=== PATIENT | male | born 1955 | race Caucasian/White ===

== ENCOUNTER 2023-10-30 12:43 | Inpatient (IN) | payer MEDICARE, OTHER ==
[~2023-10-30] VITALS: Ht 167.6 cm; Wt 53.5 kg
[~2023-10-30 12:43] MED LIST: ASPI-1444 PO; ATOR10TA PO; GLIM2 PO; LOSA-381 PO; TAMS0.4C94 PO
[2023-10-30] MEDS ORDERED: 0.9% SODIUM CHLORIDE 10 ML SYRINGE IVP PRN (13:00)
[2023-10-30] MEDS: VANCOMYCIN 1.25 GM/WATER(PEG) 250 ML IV ONE (13:36)
[2023-10-30 13:37] LABS: BASOPHILS % (AUTO) 0.4 % (0.0-2.0); EOSINOPHILS % (AUTO) 2.7 % (1.0-6.0); HEMATOCRIT 30.9 % (41-53); HEMOGLOBIN 9.6 g/dL (13.5-17.5); LYMPHOCYTES # (AUTO) 1.7 K/uL (1.0-4.8); LYMPHOCYTES % (AUTO) 14.2 % (22.0-44.0); MEAN CORPUSCULAR HEMOGLOBIN 29.5 pg (26.0-34.0); MEAN CORPUSCULAR HGB CONC 31.2 G/dL (31.0-37.0); MEAN CORPUSCULAR VOLUME 95 fL (80-100); MONOCYTES # (AUTO) 0.8 K/uL (0.1-1.0); MONOCYTES % (AUTO) 6.7 % (2.0-9.0); NEUTROPHILS # (AUTO) 9.2 K/uL (1.8-7.7); PLATELET COUNT (AUTO) 324 K/uL (150-450); RED BLOOD CELL COUNT(AUTO) 3.27 MIL/uL (4.50-5.90); RED CELL DISTRIBUTION WIDTH 13.9 % (11.5-14.5); WHITE BLOOD COUNT (AUTO) 12.1 K/uL (4.5-11.0)
[2023-10-30] MEDS: ACETAMINOPHEN 1000 MG/ISO-OSM 100 ML IV ONE (13:37)
[2023-10-30] MEDS: PIPERACILLIN/TAZO 3.375 GM/D5W 50 ML IV ONE (13:38)
[2023-10-30] MEDS: SODIUM CHLORIDE 0.9% 1,000 ML IV ONE (13:38)
[2023-10-30 13:46] LABS: ANION GAP 11 mmol/L (8-16); CALCIUM, TOTAL 8.1 mg/dL (8.8-10.5); CARBON DIOXIDE 27 mmol/L (22-29); CHLORIDE 118 mmol/L (98-107); CREATININE 2.14 mg/dL (0.60-1.30); GLOMERULAR FILTR. RATE CALC 31 mL/min (>60); GLUCOSE,RANDOM 271 mg/dL (70-110); POTASSIUM 3.7 mmol/L (3.5-5.1); SODIUM SERUM 156 mmol/L (136-145); UREA NITROGEN, BLOOD 61 mg/dL (7-18)
[2023-10-30 13:53] LABS: B-TYPE NATRIURETIC PEPTIDE 200 pg/mL (0-100)
[2023-10-30 13:54] LABS: TROPONIN I-HIGH SENSITIVITY 25 ng/L (<76)
[2023-10-30 14:00] LABS: LACTIC ACID 2.1 mmol/L (0.4-2.0)
[2023-10-30 14:01] LABS: ALANINE AMINOTRANSFERASE 63 U/L (12-78); ALBUMIN 1.6 g/dL (3.4-5.0); ALKALINE PHOSPHATASE 107 U/L (46-116); ASPARTATE AMINOTRANSFERASE 44 U/L (15-37); BILIRUBIN,TOTAL 0.3 mg/dL (0.1-1.0); CREATINE KINASE, TOTAL ONLY 338 U/L (39-308); TOTAL PROTEIN, SERUM 7.4 g/dL (6.4-8.2)
[2023-10-30 14:11] LABS: COVID AG,FIA SOURCE NASAL SWAB
[2023-10-30] MEDS ORDERED: BISACODYL 10 MG RECTAL RECTAL SUPPOSITORY PR PRN (14:30)
[2023-10-30] MEDS ORDERED: DEXTROSE 50%-WATER 25 GM/50 ML SYRINGE IVP PRN (14:30)
[2023-10-30] MEDS ORDERED: ONDANSETRON HCL 4 MG/2 ML VIAL IVP PRN (14:30)
[2023-10-30 14:48] LABS: INFLUENZA TYPE A NEGATIVE FOR TYPE A (NEGATIVE); INFLUENZA TYPE B NEGATIVE FOR TYPE B (NEGATIVE)
[2023-10-30 14:55] LABS: SARS-COV2 (COVID) ANTIGEN,FIA Positive (Negative)
[2023-10-30 14:56] LABS: APPEARANCE,URINE CLEAR (CLEAR); BILIRUBIN,URINE NEGATIVE (NEGATIVE); COLOR,URINE LIGHT YELLOW (YELLOW); GLUCOSE, URINE (UA) 150-200 mg/dL (NEGATIVE); KETONES,URINE NEGATIVE (NEGATIVE); LEUKOCYTE ESTERASE ,URINE NEGATIVE (NEGATIVE); NITRATE,URINE NEGATIVE (NEGATIVE); OCCULT BLOOD,URINE MODERATE (NEGATIVE); PROTEIN,URINE TRACE mg/dL (NEGATIVE); SPECIFIC GRAVITIY, URINE 1.017 (1.003-1.030); UROBILINOGEN,URINE <=1.0 mg/dL (<=1.0)
[2023-10-30] MEDS: HEPARIN SODIUM,PORCINE 5,000 UNITS/ML VIAL SQ SCH (15:00)
[2023-10-30 15:20] LABS: BACTERIA,URINE None Seen /HPF (None Seen); WBC,URINE 0-2 /HPF (0-5)
[2023-10-30] MEDS: SODIUM CHLORIDE 0.45% 1,000 ML IV ONE (16:21)
[2023-10-30] MEDS: PIPERACILLIN SODIUM/TAZOBACTAM 2.25 GM in DEXTROSE 5%-WATER 50 ML IV SCH (19:27)
[2023-10-30 19:51] LABS: GLUCOMETER DEV NAME(LOC) ER.7; GLUCOSE,POINT OF CARE 133 MG/DL (70-110)
[2023-10-31 02:23] LABS: CREATININE,URINE RANDOM 46.7 mg/dL (30.0-125.0)
[2023-10-31 02:43] VITALS: BP 121/80; PULSE 65; RESP 18; TEMP 96
[2023-10-31 06:36] VITALS: BP 153/75; PULSE 65; RESP 18; TEMP 98.1
[2023-10-31 07:28] LABS: BASOPHILS % (AUTO) 0.5 % (0.0-2.0); EOSINOPHILS % (AUTO) 4.1 % (1.0-6.0); HEMOGLOBIN 9.6 g/dL (13.5-17.5); LYMPHOCYTES # (AUTO) 1.5 K/uL (1.0-4.8); LYMPHOCYTES % (AUTO) 13.1 % (22.0-44.0); MEAN CORPUSCULAR HEMOGLOBIN 29.6 pg (26.0-34.0); MEAN CORPUSCULAR VOLUME 96 fL (80-100); MONOCYTES # (AUTO) 0.7 K/uL (0.1-1.0); MONOCYTES % (AUTO) 6.2 % (2.0-9.0); NEUTROPHILS # (AUTO) 8.9 K/uL (1.8-7.7); NEUTROPHILS % (AUTO) 76.1 % (40.0-70.0); PLATELET COUNT (AUTO) 312 K/uL (150-450); RED BLOOD CELL COUNT(AUTO) 3.24 MIL/uL (4.50-5.90); WHITE BLOOD COUNT (AUTO) 11.7 K/uL (4.5-11.0)
[2023-10-31 07:36] LABS: CALCIUM, TOTAL 8.3 mg/dL (8.8-10.5); CREATININE 1.67 mg/dL (0.60-1.30)
[2023-10-31 07:44] LABS: % IRON SATURATION 18.5 % (30-44)
[2023-10-31] MEDS ORDERED: VANCOMYCIN 750 MG/WATER(PEG) 150 ML IV SCH (08:00)
[2023-10-31 08:03] LABS: HEMOGLOBIN A1C 9.4 % (3.8-5.6)
[2023-10-31] MEDS: PANTOPRAZOLE SODIUM 40 MG/VIAL IVP SCH (08:14)
[2023-10-31] MEDS: VANCOMYCIN 1GM/WATER(PEG/NADA) 200 ML IV SCH (08:14)
[2023-10-31 08:26] VITALS: BP 141/72; PULSE 69; RESP 18; TEMP 98
[2023-10-31 09:36] LABS: GLUCOMETER DEV NAME(LOC) 5S.2D; GLUCOSE,POINT OF CARE 107 MG/DL (70-110)
[2023-10-31] MEDS ORDERED: AMIO200 PO (11:49)
[2023-10-31] MEDS ORDERED: METO25 PO (11:49)
[2023-10-31] MEDS ORDERED: APIX2.5T PO (11:49)
[2023-10-31] MEDS ORDERED: FAMO20 PO (11:49)
[2023-10-31 12:05] VITALS: BP 145/75; PULSE 70; RESP 18; TEMP 98
[2023-10-31] MEDS: DEXTROSE 5%-WATER 1,000 ML IV SCH (12:16)
[2023-10-31] MEDS: PIPERACILLIN/TAZO 3.375 GM/D5W 50 ML IV SCH (13:09)
[2023-10-31 15:25] VITALS: BP 155/78; PULSE 73; RESP 18; TEMP 98
[2023-10-31 20:00] VITALS: BP 158/71; PULSE 68; RESP 19; TEMP 97.7
[2023-10-31] MEDS: INSULIN LISPRO 100 UNITS/ML SQ PRN (21:46)
[2023-11-01] VITALS: BP 149/73; PULSE 71; RESP 18; TEMP 98.1
[2023-11-01 00:50] LABS: GLUCOMETER DEV NAME(LOC) 5S.2D; GLUCOSE,POINT OF CARE 163 MG/DL (70-110)
[2023-11-01 04:00] VITALS: BP 145/70; PULSE 75; RESP 18; TEMP 97.9
[2023-11-01 07:44] LABS: CALCIUM, TOTAL 8.4 mg/dL (8.8-10.5); CREATININE 1.46 mg/dL (0.60-1.30); POTASSIUM 4.4 mmol/L (3.5-5.1)
[2023-11-01 08:12] VITALS: BP 142/71; PULSE 74; RESP 18; TEMP 98
[2023-11-01 08:26] LABS: GLUCOMETER DEV NAME(LOC) 5N.2C; GLUCOSE,POINT OF CARE 183 MG/DL (70-110)
[2023-11-01 11:57] VITALS: BP 144/80; PULSE 69; RESP 18; TEMP 98.3
[2023-11-01 15:16] VITALS: BP 138/78; PULSE 72; RESP 18; TEMP 98
[2023-11-01 20:00] VITALS: BP 135/80; PULSE 75; RESP 18; TEMP 97.8
[2023-11-02] VITALS: BP 140/74; PULSE 78; RESP 18; TEMP 97.8
[2023-11-02 04:00] VITALS: BP 142/75; PULSE 75; RESP 19; TEMP 98.1
[2023-11-02 06:36] LABS: GLUCOMETER DEV NAME(LOC) 5S.1B; GLUCOSE,POINT OF CARE 170 MG/DL (70-110)
[2023-11-02 06:36] LABS: GLUCOMETER DEV NAME(LOC) 5S.2D; GLUCOSE,POINT OF CARE 93 MG/DL (70-110)
[2023-11-02 07:13] LABS: CALCIUM, TOTAL 8.6 mg/dL (8.8-10.5); CREATININE 1.37 mg/dL (0.60-1.30); POTASSIUM 4.5 mmol/L (3.5-5.1); VANCOMYCIN,RANDOM 14.9 mcg/mL (25.0-50.0)
[2023-11-02 08:36] LABS: GLUCOMETER DEV NAME(LOC) 5N.2C; GLUCOSE,POINT OF CARE 168 MG/DL (70-110)
[2023-11-02 08:53] VITALS: BP 135/78; PULSE 87; RESP 18; TEMP 97.6
[2023-11-02 12:10] VITALS: BP 125/75; PULSE 74; RESP 18; TEMP 97.8
[2023-11-02 12:36] LABS: GLUCOMETER DEV NAME(LOC) 5N.2C; GLUCOSE,POINT OF CARE 168 MG/DL (70-110)
[2023-11-02 15:44] VITALS: BP 151/68; PULSE 86; RESP 18; TEMP 98.7
[2023-11-02 19:55] VITALS: BP 138/77; PULSE 84; RESP 19; TEMP 98.7
[2023-11-02 20:16] LABS: GLUCOMETER DEV NAME(LOC) 5S.1B; GLUCOSE,POINT OF CARE 181 MG/DL (70-110)
[2023-11-02] MEDS ORDERED: SODIUM CHLORIDE 0.9% 250 ML IV ONE (20:25)
[2023-11-03] VITALS (7 sets, daily range): BP systolic 125–155; BP diastolic 68–92; PULSE 80–98; RESP 16–19; TEMP 97.8–98.9
[2023-11-03 06:04] LABS: BASOPHILS % (AUTO) 0.7 % (0.0-2.0); HEMOGLOBIN 10.5 g/dL (13.5-17.5); LYMPHOCYTES # (AUTO) 1.8 K/uL (1.0-4.8); LYMPHOCYTES % (AUTO) 17.9 % (22.0-44.0); MEAN CORPUSCULAR HEMOGLOBIN 29.9 pg (26.0-34.0); MEAN CORPUSCULAR HGB CONC 32.7 G/dL (31.0-37.0); MEAN CORPUSCULAR VOLUME 92 fL (80-100); MONOCYTES # (AUTO) 0.9 K/uL (0.1-1.0); MONOCYTES % (AUTO) 8.5 % (2.0-9.0); NEUTROPHILS # (AUTO) 7.1 K/uL (1.8-7.7); NEUTROPHILS % (AUTO) 69.9 % (40.0-70.0); PLATELET COUNT (AUTO) 330 K/uL (150-450); RED BLOOD CELL COUNT(AUTO) 3.49 MIL/uL (4.50-5.90); RED CELL DISTRIBUTION WIDTH 13.7 % (11.5-14.5); WHITE BLOOD COUNT (AUTO) 10.1 K/uL (4.5-11.0)
[2023-11-03 06:11] LABS: CALCIUM, TOTAL 8.1 mg/dL (8.8-10.5); CREATININE 1.53 mg/dL (0.60-1.30); POTASSIUM 3.8 mmol/L (3.5-5.1)
[2023-11-03] MEDS ORDERED: HYDROCODONE/ACETAMINOPHEN 5-325 MG TABLET PO PRN (07:30)
[2023-11-03 07:36] LABS: GLUCOMETER DEV NAME(LOC) 5N.2C; GLUCOSE,POINT OF CARE 160 MG/DL (70-110)
[2023-11-03 07:36] LABS: GLUCOMETER DEV NAME(LOC) 5S.2D; GLUCOSE,POINT OF CARE 169 MG/DL (70-110)
[2023-11-03] MEDS: HYDROCODONE/ACETAMINOPHEN 5-325 MG TABLET PEG PRN (08:27)
[2023-11-03] MEDS ORDERED: HYDROCODONE/ACETAMINOPHEN 5-325 MG TABLET PEG PRN (11:30)
[2023-11-04 00:36] VITALS: BP 132/64; PULSE 99; RESP 18; TEMP 98.6
[2023-11-04 04:39] VITALS: BP 140/63; PULSE 99; RESP 18; TEMP 98.9
[2023-11-04] MEDS ORDERED: SODIUM CHLORIDE 0.9% 250 ML IV ONE (05:57)
[2023-11-04 07:40] VITALS: BP 126/68; PULSE 97; RESP 18; TEMP 98.1
[2023-11-04 07:58] LABS: ANION GAP 13 mmol/L (8-16); CALCIUM, TOTAL 8.2 mg/dL (8.8-10.5); CARBON DIOXIDE 18 mmol/L (22-29); CHLORIDE 105 mmol/L (98-107); CREATININE 1.19 mg/dL (0.60-1.30); GLOMERULAR FILTR. RATE CALC > 60 mL/min (>60); GLUCOSE,RANDOM 141 mg/dL (70-110); POTASSIUM 3.6 mmol/L (3.5-5.1); SODIUM SERUM 136 mmol/L (136-145); UREA NITROGEN, BLOOD 19 mg/dL (7-18)
[2023-11-04] MEDS: MORPHINE SULFATE 2 MG/ML SYRINGE IVP PRN (10:06)
[2023-11-04 10:59] VITALS: BP 106/63; PULSE 95; RESP 18; TEMP 98.1
[2023-11-04 11:45] LABS: GLUCOMETER DEV NAME(LOC) 5S.1B; GLUCOSE,POINT OF CARE 110 MG/DL (70-110)
[2023-11-04 11:46] LABS: GLUCOMETER DEV NAME(LOC) 5N.2C; GLUCOSE,POINT OF CARE 134 MG/DL (70-110)
[2023-11-04 11:46] LABS: GLUCOMETER DEV NAME(LOC) 5S.1B; GLUCOSE,POINT OF CARE 131 MG/DL (70-110)
[2023-11-04 17:31] LABS: GLUCOMETER DEV NAME(LOC) 5S.2D; GLUCOSE,POINT OF CARE 105 MG/DL (70-110)
[2023-11-04 17:31] LABS: GLUCOMETER DEV NAME(LOC) 5S.2D; GLUCOSE,POINT OF CARE 210 MG/DL (70-110)
[2023-11-04 17:43] LABS: ABG BASE EXCESS -6.1 mmol/L (-2.0-3.0); ABG CARBOXYHEMOGLOBIN 0.3 % (0.0-1.5); ABG HCO3 20.5 mmol/L (22.0-26.0); ABG METHEMOGLOBIN 0.1 % (0.0-1.5); ABG OXYGEN SATURATION 98.6 % (95.0-98.0); ABG OXYHEMOGLOBIN 98.2 % (94.0-100.0); ABG PCO2 23 mmHg (35-45); ABG PH 7.493 (7.35-7.450); PO2, ARTERIAL BG 112.3 mmHg (79.0-87.0); SOURCE, BLOOD GAS ARTERIAL; TEMPERATURE, FAHRENHEIT, BG 98.1 FAHREN (96.0-98.6)
[2023-11-04 17:44] LABS: ABG A-A DIFF O2 10.1 mmHg (10-20.0); ALLEN TEST, BLOOD GAS Positive; O2 DEVICE,BLOOD GAS ROOM AIR (ROOM AIR); SITE, BLOOD GAS RT RADIAL
[2023-11-04 20:23] VITALS: BP 135/60; PULSE 91; RESP 18; TEMP 97.9
[2023-11-04 23:31] LABS: GLUCOMETER DEV NAME(LOC) 5N.2C; GLUCOSE,POINT OF CARE 162 MG/DL (70-110)
[2023-11-05 00:30] VITALS: BP 108/63; PULSE 86; RESP 18; TEMP 98.1
[2023-11-05 05:07] VITALS: BP 114/64; PULSE 87; RESP 18; TEMP 98.2
[2023-11-05 07:39] LABS: CALCIUM, TOTAL 8.1 mg/dL (8.8-10.5); CREATININE 1.28 mg/dL (0.60-1.30); POTASSIUM 3.4 mmol/L (3.5-5.1)
[2023-11-05 08:01] LABS: GLUCOMETER DEV NAME(LOC) 5S.2D; GLUCOSE,POINT OF CARE 217 MG/DL (70-110)
[2023-11-05 08:01] LABS: GLUCOMETER DEV NAME(LOC) 5S.2D; GLUCOSE,POINT OF CARE 145 MG/DL (70-110)
[2023-11-05 08:30] VITALS: BP 129/78; PULSE 81; RESP 18; TEMP 98.3
[2023-11-05 11:58] VITALS: BP 142/71; PULSE 84; RESP 18; TEMP 98.9
[2023-11-05 16:03] VITALS: BP 122/57; PULSE 95; RESP 18; TEMP 99.2
[2023-11-05 17:46] LABS: GLUCOMETER DEV NAME(LOC) 5S.2D; GLUCOSE,POINT OF CARE 234 MG/DL (70-110)
[2023-11-05] MEDS: POTASSIUM CHLORIDE 10% 40 MEQ/30 ML LIQUID UDCUP PEG ONE (18:32)
[2023-11-05 20:13] VITALS: BP 126/68; PULSE 92; RESP 18; TEMP 97.9
[2023-11-05 21:21] LABS: GLUCOMETER DEV NAME(LOC) 5S.2D; GLUCOSE,POINT OF CARE 206 MG/DL (70-110)
[2023-11-05 21:21] LABS: GLUCOMETER DEV NAME(LOC) 5N.2C; GLUCOSE,POINT OF CARE 242 MG/DL (70-110)
[2023-11-06] VITALS (7 sets, daily range): BP systolic 105–147; BP diastolic 64–91; PULSE 72–144; RESP 18–25; TEMP 98.4–100.4
[2023-11-06] MEDS: DIGOXIN 250 MCG/ML 2 ML AMP IVP ONE ×2 (01:45→02:30)
[2023-11-06] MEDS ORDERED: SODIUM CHLORIDE 0.9% 250 ML IV ONE (05:21)
[2023-11-06] MEDS: AMIODARONE HCL 150 MG in DEXTROSE 5%-WATER 97 ML IV ONE (06:18)
[2023-11-06] MEDS: AMIODARONE HCL 360 MG in DEXTROSE 5%-WATER 242.8 ML IV ONE (06:34)
[2023-11-06 07:30] LABS: ANION GAP 10 mmol/L (8-16); CALCIUM, TOTAL 8.5 mg/dL (8.8-10.5); CARBON DIOXIDE 21 mmol/L (22-29); CHLORIDE 105 mmol/L (98-107); CREATININE 1.16 mg/dL (0.60-1.30); GLOMERULAR FILTR. RATE CALC > 60 mL/min (>60); GLUCOSE,RANDOM 249 mg/dL (70-110); POTASSIUM 4.5 mmol/L (3.5-5.1); SODIUM SERUM 136 mmol/L (136-145); UREA NITROGEN, BLOOD 18 mg/dL (7-18); VANCOMYCIN,RANDOM 16.6 mcg/mL (25.0-50.0)
[2023-11-06 12:06] LABS: BASOPHILS % (AUTO) 0.8 % (0.0-2.0); EOSINOPHILS % (AUTO) 3.7 % (1.0-6.0); LYMPHOCYTES # (AUTO) 1.6 K/uL (1.0-4.8); MEAN CORPUSCULAR HEMOGLOBIN 29.8 pg (26.0-34.0); MEAN CORPUSCULAR HGB CONC 32.4 G/dL (31.0-37.0); MEAN CORPUSCULAR VOLUME 92 fL (80-100); MONOCYTES # (AUTO) 0.8 K/uL (0.1-1.0); MONOCYTES % (AUTO) 8.2 % (2.0-9.0); NEUTROPHILS # (AUTO) 6.6 K/uL (1.8-7.7); NEUTROPHILS % (AUTO) 70.3 % (40.0-70.0); PLATELET COUNT (AUTO) 471 K/uL (150-450); RED BLOOD CELL COUNT(AUTO) 4.03 MIL/uL (4.50-5.90); RED CELL DISTRIBUTION WIDTH 14.7 % (11.5-14.5); WHITE BLOOD COUNT (AUTO) 9.3 K/uL (4.5-11.0)
[2023-11-06 12:16] LABS: ANION GAP 8 mmol/L (8-16); CALCIUM, TOTAL 8.6 mg/dL (8.8-10.5); CARBON DIOXIDE 25 mmol/L (22-29); CHLORIDE 101 mmol/L (98-107); CREATININE 1.13 mg/dL (0.60-1.30); GLOMERULAR FILTR. RATE CALC > 60 mL/min (>60); GLUCOSE,RANDOM 288 mg/dL (70-110); POTASSIUM 4.7 mmol/L (3.5-5.1); SODIUM SERUM 134 mmol/L (136-145); UREA NITROGEN, BLOOD 18 mg/dL (7-18)
[2023-11-06 12:22] LABS: ALANINE AMINOTRANSFERASE 87 U/L (12-78); ALBUMIN 1.7 g/dL (3.4-5.0); ALKALINE PHOSPHATASE 171 U/L (46-116); ASPARTATE AMINOTRANSFERASE 63 U/L (15-37); BILIRUBIN,TOTAL 0.3 mg/dL (0.1-1.0)
[2023-11-06] MEDS: AMIODARONE HCL 540 MG in DEXTROSE 5%-WATER 239.2 ML IV ONE (13:23)
[2023-11-06] MEDS: AMIODARONE HCL 200 MG TABLET PO SCH (21:00)
[2023-11-06] MEDS: TAMSULOSIN HCL 0.4 MG CAPSULE PO SCH (21:14)
[2023-11-06] MEDS: APIXABAN 2.5 MG TABLET PO SCH (21:14)
[2023-11-06] MEDS: METOPROLOL TARTRATE 25 MG TABLET PO SCH (21:15)
[2023-11-06] MEDS: ATORVASTATIN CALCIUM 10 MG TABLET PO SCH (21:15)
[2023-11-06] MEDS: FAMOTIDINE 20 MG TABLET PO SCH (21:15)
[2023-11-07 00:21] VITALS: BP 146/63; PULSE 63; RESP 18; TEMP 99.1
[2023-11-07 00:56] LABS: GLUCOMETER DEV NAME(LOC) 5S.2D; GLUCOSE,POINT OF CARE 170 MG/DL (70-110)
[2023-11-07 00:56] LABS: GLUCOMETER DEV NAME(LOC) 5S.2D; GLUCOSE,POINT OF CARE 181 MG/DL (70-110)
[2023-11-07 00:56] LABS: GLUCOMETER DEV NAME(LOC) 5S.2D; GLUCOSE,POINT OF CARE 288 MG/DL (70-110)
[2023-11-07 00:56] LABS: GLUCOMETER DEV NAME(LOC) 5S.2D; GLUCOSE,POINT OF CARE 237 MG/DL (70-110)
[2023-11-07 02:46] LABS: APPEARANCE,URINE CLEAR (CLEAR); BILIRUBIN,URINE NEGATIVE (NEGATIVE); COLOR,URINE LIGHT YELLOW (YELLOW); GLUCOSE, URINE (UA) NEGATIVE (NEGATIVE); KETONES,URINE NEGATIVE (NEGATIVE); LEUKOCYTE ESTERASE ,URINE NEGATIVE (NEGATIVE); NITRATE,URINE NEGATIVE (NEGATIVE); OCCULT BLOOD,URINE SMALL (NEGATIVE); PH,URINE 5.5 (5.0-8.0); PROTEIN,URINE 30-70 mg/dL (NEGATIVE); SPECIFIC GRAVITIY, URINE 1.026 (1.003-1.030); UROBILINOGEN,URINE <=1.0 mg/dL (<=1.0)
[2023-11-07 02:56] LABS: BACTERIA,URINE None Seen /HPF (None Seen); SQUAMOUS EPITHELIAL CELL,UR None Seen /LPF (None Seen); WBC,URINE None Seen /HPF (0-5)
[2023-11-07 04:41] VITALS: BP 135/66; PULSE 71; RESP 19; TEMP 98.7
[2023-11-07] MEDS ORDERED: AMIODARONE HCL 750 MG in DEXTROSE 5%-WATER 485 ML IV SCH (05:00)
[2023-11-07] MEDS: AMIODARONE HCL 750 MG in DEXTROSE 5%-WATER 485 ML IV SCH (07:06)
[2023-11-07 08:00] VITALS: BP 128/70; PULSE 68; RESP 18; TEMP 98.2
[2023-11-07 08:27] LABS: ANION GAP 14 mmol/L (8-16); CALCIUM, TOTAL 8.4 mg/dL (8.8-10.5); CARBON DIOXIDE 19 mmol/L (22-29); CHLORIDE 101 mmol/L (98-107); CREATININE 1.12 mg/dL (0.60-1.30); GLOMERULAR FILTR. RATE CALC > 60 mL/min (>60); GLUCOSE,RANDOM 205 mg/dL (70-110); POTASSIUM 3.9 mmol/L (3.5-5.1); SODIUM SERUM 134 mmol/L (136-145); UREA NITROGEN, BLOOD 19 mg/dL (7-18)
[2023-11-07] MEDS: GLIMEPIRIDE 2 MG TABLET PO SCH (09:25)
[2023-11-07] MEDS: ASPIRIN 81 MG DR TABLET PO SCH (09:25)
[2023-11-07] MEDS: LOSARTAN POTASSIUM 25 MG TABLET PO SCH (09:29)
[2023-11-07 09:37] LABS: BASOPHILS % (AUTO) 0.6 % (0.0-2.0); EOSINOPHILS % (AUTO) 1.8 % (1.0-6.0); HEMATOCRIT 31.7 % (41-53); HEMOGLOBIN 10.3 g/dL (13.5-17.5); LYMPHOCYTES # (AUTO) 0.9 K/uL (1.0-4.8); LYMPHOCYTES % (AUTO) 8.7 % (22.0-44.0); MEAN CORPUSCULAR HEMOGLOBIN 29.8 pg (26.0-34.0); MEAN CORPUSCULAR HGB CONC 32.3 G/dL (31.0-37.0); MEAN CORPUSCULAR VOLUME 92 fL (80-100); MONOCYTES # (AUTO) 0.6 K/uL (0.1-1.0); MONOCYTES % (AUTO) 5.8 % (2.0-9.0); NEUTROPHILS # (AUTO) 8.4 K/uL (1.8-7.7); NEUTROPHILS % (AUTO) 83.1 % (40.0-70.0); PLATELET COUNT (AUTO) 509 K/uL (150-450); RED BLOOD CELL COUNT(AUTO) 3.44 MIL/uL (4.50-5.90); RED CELL DISTRIBUTION WIDTH 14.7 % (11.5-14.5); WHITE BLOOD COUNT (AUTO) 10.1 K/uL (4.5-11.0)
[2023-11-07] MEDS: HEPARIN SODIUM 25000 UNITS/D5W 250 ML IV PRN (10:19)
[2023-11-07 10:24] LABS: INR 1.1 (0.9-1.1); PROTHROMBIN TIME 11.5 SEC (9.4-11.6)
[2023-11-07 11:56] LABS: GLUCOMETER DEV NAME(LOC) 5N.2C; GLUCOSE,POINT OF CARE 214 MG/DL (70-110)
[2023-11-07 15:21] VITALS: BP 117/61; PULSE 71; RESP 18; TEMP 98.4
[2023-11-07] MEDS ORDERED: HEPARIN SODIUM,PORCINE 5,000 UNITS/ML VIAL IVP PRN (16:00)
[2023-11-07] MEDS ORDERED: HEPARIN SODIUM,PORCINE 5,000 UNITS/ML VIAL IVP ONE (16:00)
[2023-11-07] MEDS: HEPARIN SODIUM,PORCINE 5,000 UNITS/ML VIAL IVP PRN (16:37)
[2023-11-07] MEDS: AMIODARONE HCL 200 MG TABLET PO ONE (17:49)
[2023-11-07 18:38] VITALS: BP 144/66; PULSE 74; RESP 19
[2023-11-07 19:50] VITALS: BP 131/60; PULSE 72; RESP 18; TEMP 98.7
[2023-11-07] MEDS: AMIODARONE HCL 200 MG TABLET PO SCH (21:06)
[2023-11-07 21:55] LABS: GLUCOMETER DEV NAME(LOC) 5S.2D; GLUCOSE,POINT OF CARE 252 MG/DL (70-110)
[2023-11-07 21:56] LABS: GLUCOMETER DEV NAME(LOC) 5S.2D; GLUCOSE,POINT OF CARE 136 MG/DL (70-110)
[2023-11-08 00:34] VITALS: BP 127/53; PULSE 72; RESP 18; TEMP 97.8
[2023-11-08 06:09] VITALS: BP 106/63; PULSE 89; RESP 18; TEMP 101.9
[2023-11-08] MEDS: ACETAMINOPHEN 325 MG TABLET PO PRN (06:20)
[2023-11-08 06:23] LABS: BASOPHILS % (AUTO) 0.2 % (0.0-2.0); EOSINOPHILS % (AUTO) 2.3 % (1.0-6.0); HEMATOCRIT 32.9 % (41-53); HEMOGLOBIN 10.7 g/dL (13.5-17.5); LYMPHOCYTES # (AUTO) 0.7 K/uL (1.0-4.8); LYMPHOCYTES % (AUTO) 7.8 % (22.0-44.0); MEAN CORPUSCULAR HEMOGLOBIN 29.6 pg (26.0-34.0); MEAN CORPUSCULAR HGB CONC 32.5 G/dL (31.0-37.0); MEAN CORPUSCULAR VOLUME 91 fL (80-100); MONOCYTES # (AUTO) 0.5 K/uL (0.1-1.0); MONOCYTES % (AUTO) 5.1 % (2.0-9.0); NEUTROPHILS # (AUTO) 7.9 K/uL (1.8-7.7); NEUTROPHILS % (AUTO) 84.6 % (40.0-70.0); PLATELET COUNT (AUTO) 502 K/uL (150-450); RED CELL DISTRIBUTION WIDTH 14.7 % (11.5-14.5); WHITE BLOOD COUNT (AUTO) 9.4 K/uL (4.5-11.0)
[2023-11-08 06:39] LABS: CALCIUM, TOTAL 8.4 mg/dL (8.8-10.5); CREATININE 1.21 mg/dL (0.60-1.30); POTASSIUM 3.8 mmol/L (3.5-5.1)
[2023-11-08 08:16] LABS: GLUCOMETER DEV NAME(LOC) 5N.2C; GLUCOSE,POINT OF CARE 172 MG/DL (70-110)
[2023-11-08 08:16] LABS: GLUCOMETER DEV NAME(LOC) 5S.1B; GLUCOSE,POINT OF CARE 166 MG/DL (70-110)
[2023-11-08 09:19] VITALS: BP 116/72; PULSE 84; RESP 20; TEMP 98.7
[2023-11-08 12:59] VITALS: BP 115/56; PULSE 60; RESP 14; TEMP 98.4
[2023-11-08 13:25] LABS: GLUCOMETER DEV NAME(LOC) 5S.1B; GLUCOSE,POINT OF CARE 161 MG/DL (70-110)
[2023-11-08 18:16] LABS: GLUCOMETER DEV NAME(LOC) 5N.2C; GLUCOSE,POINT OF CARE 161 MG/DL (70-110)
[2023-11-08 18:41] VITALS: BP 124/73
[2023-11-08 20:07] VITALS: BP 153/64; PULSE 74; RESP 17; TEMP 99.1
[2023-11-08 22:46] LABS: GLUCOMETER DEV NAME(LOC) 5N.1D; GLUCOSE,POINT OF CARE 163 MG/DL (70-110)
[2023-11-09] VITALS (9 sets, daily range): BP systolic 118–156; BP diastolic 49–76; PULSE 62–88; RESP 18–19; TEMP 98–101.7
[2023-11-09 07:27] LABS: ANION GAP 10 mmol/L (8-16); CALCIUM, TOTAL 8.3 mg/dL (8.8-10.5); CARBON DIOXIDE 23 mmol/L (22-29); CHLORIDE 102 mmol/L (98-107); CREATININE 1.02 mg/dL (0.60-1.30); GLOMERULAR FILTR. RATE CALC > 60 mL/min (>60); GLUCOSE,RANDOM 143 mg/dL (70-110); SODIUM SERUM 135 mmol/L (136-145); UREA NITROGEN, BLOOD 22 mg/dL (7-18); VANCOMYCIN,RANDOM 11.7 mcg/mL (25.0-50.0)
[2023-11-09 11:51] LABS: GLUCOMETER DEV NAME(LOC) 5S.1B; GLUCOSE,POINT OF CARE 164 MG/DL (70-110)
[2023-11-09 14:44] LABS: BASOPHILS % (AUTO) 0.5 % (0.0-2.0); EOSINOPHILS % (AUTO) 0.1 % (1.0-6.0); HEMATOCRIT 28.4 % (41-53); HEMOGLOBIN 9.2 g/dL (13.5-17.5); LYMPHOCYTES # (AUTO) 0.3 K/uL (1.0-4.8); LYMPHOCYTES % (AUTO) 2.3 % (22.0-44.0); MEAN CORPUSCULAR HEMOGLOBIN 29.2 pg (26.0-34.0); MEAN CORPUSCULAR HGB CONC 32.4 G/dL (31.0-37.0); MEAN CORPUSCULAR VOLUME 90 fL (80-100); MONOCYTES # (AUTO) 0.4 K/uL (0.1-1.0); MONOCYTES % (AUTO) 2.9 % (2.0-9.0); PLATELET COUNT (AUTO) 516 K/uL (150-450); RED BLOOD CELL COUNT(AUTO) 3.15 MIL/uL (4.50-5.90); RED CELL DISTRIBUTION WIDTH 14.9 % (11.5-14.5); WHITE BLOOD COUNT (AUTO) 13.8 K/uL (4.5-11.0)
[2023-11-09 14:45] LABS: NEUTROPHILS % (AUTO) 94.2 % (40.0-70.0)
[2023-11-09 14:55] LABS: CALCIUM, TOTAL 8.6 mg/dL (8.8-10.5); CREATININE 1.33 mg/dL (0.60-1.30); POTASSIUM 3.8 mmol/L (3.5-5.1)
[2023-11-09 18:00] LABS: GLUCOMETER DEV NAME(LOC) 5S.1B; GLUCOSE,POINT OF CARE 111 MG/DL (70-110)
[2023-11-09 18:00] LABS: GLUCOMETER DEV NAME(LOC) 5S.1B; GLUCOSE,POINT OF CARE 211 MG/DL (70-110)
[2023-11-09 18:08] LABS: APPEARANCE,URINE HAZY (CLEAR); BILIRUBIN,URINE NEGATIVE (NEGATIVE); COLOR,URINE YELLOW (YELLOW); GLUCOSE, URINE (UA) NEGATIVE (NEGATIVE); KETONES,URINE NEGATIVE (NEGATIVE); LEUKOCYTE ESTERASE ,URINE NEGATIVE (NEGATIVE); NITRATE,URINE NEGATIVE (NEGATIVE); OCCULT BLOOD,URINE SMALL (NEGATIVE); PH,URINE 5.5 (5.0-8.0); PROTEIN,URINE 30-70 mg/dL (NEGATIVE); SPECIFIC GRAVITIY, URINE 1.017 (1.003-1.030); UROBILINOGEN,URINE <=1.0 mg/dL (<=1.0)
[2023-11-09 18:47] LABS: BACTERIA,URINE None Seen /HPF (None Seen); WBC,URINE None Seen /HPF (0-5)
[2023-11-10] MEDS: DEXTROSE 50%-WATER 25 GM/50 ML SYRINGE IVP PRN (04:46)
[2023-11-10 05:11] VITALS: BP 149/65; PULSE 67; RESP 18; TEMP 99.2
[2023-11-10 05:30] LABS: GLUCOMETER DEV NAME(LOC) 5S.1B; GLUCOSE,POINT OF CARE 236 MG/DL (70-110)
[2023-11-10 05:30] LABS: GLUCOMETER DEV NAME(LOC) 5S.1B; GLUCOSE,POINT OF CARE 65 MG/DL (70-110)
[2023-11-10 05:30] LABS: GLUCOMETER DEV NAME(LOC) 5N.2C; GLUCOSE,POINT OF CARE 112 MG/DL (70-110)
[2023-11-10 08:18] VITALS: BP 141/55; PULSE 69; RESP 18; TEMP 99.5
[2023-11-10 12:28] VITALS: BP 117/44; PULSE 68; RESP 20; TEMP 99.2
[2023-11-10 16:02] VITALS: BP 99/49; PULSE 66; RESP 18; TEMP 99.6
[2023-11-10 20:17] VITALS: BP 112/54; PULSE 68; RESP 18; TEMP 100.5
[2023-11-10 20:21] LABS: GLUCOMETER DEV NAME(LOC) 5S.1B; GLUCOSE,POINT OF CARE 124 MG/DL (70-110)
[2023-11-10 20:21] LABS: GLUCOMETER DEV NAME(LOC) 5S.1B; GLUCOSE,POINT OF CARE 181 MG/DL (70-110)
[2023-11-10 22:46] LABS: GLUCOMETER DEV NAME(LOC) 5N.2C; GLUCOSE,POINT OF CARE 76 MG/DL (70-110)
[2023-11-11 00:08] VITALS: BP 125/83; PULSE 61; RESP 18; TEMP 97.8
[2023-11-11 04:58] VITALS: BP 125/56; PULSE 69; RESP 18; TEMP 97.6
[2023-11-11 07:33] LABS: BASOPHILS % (AUTO) 0.4 % (0.0-2.0); EOSINOPHILS % (AUTO) 2.7 % (1.0-6.0); HEMATOCRIT 27.6 % (41-53); LYMPHOCYTES # (AUTO) 1.3 K/uL (1.0-4.8); LYMPHOCYTES % (AUTO) 13.7 % (22.0-44.0); MEAN CORPUSCULAR HEMOGLOBIN 29.7 pg (26.0-34.0); MEAN CORPUSCULAR HGB CONC 32.5 G/dL (31.0-37.0); MEAN CORPUSCULAR VOLUME 91 fL (80-100); MONOCYTES # (AUTO) 1.1 K/uL (0.1-1.0); MONOCYTES % (AUTO) 11.2 % (2.0-9.0); NEUTROPHILS # (AUTO) 6.8 K/uL (1.8-7.7); PLATELET COUNT (AUTO) 501 K/uL (150-450); RED BLOOD CELL COUNT(AUTO) 3.03 MIL/uL (4.50-5.90); RED CELL DISTRIBUTION WIDTH 15.2 % (11.5-14.5); WHITE BLOOD COUNT (AUTO) 9.5 K/uL (4.5-11.0)
[2023-11-11 08:11] LABS: GLUCOMETER DEV NAME(LOC) 5N.2C; GLUCOSE,POINT OF CARE 232 MG/DL (70-110)
[2023-11-11 08:11] LABS: GLUCOMETER DEV NAME(LOC) 5N.2C; GLUCOSE,POINT OF CARE 67 MG/DL (70-110)
[2023-11-11 08:12] VITALS: BP 124/67; PULSE 64; RESP 17; TEMP 98.7
[2023-11-11 11:47] VITALS: BP 119/55; PULSE 54; RESP 18; TEMP 98.9
[2023-11-11 16:21] LABS: GLUCOMETER DEV NAME(LOC) 5N.2C; GLUCOSE,POINT OF CARE 83 MG/DL (70-110)
[2023-11-11 20:16] LABS: GLUCOMETER DEV NAME(LOC) 5S.1B; GLUCOSE,POINT OF CARE 73 MG/DL (70-110)
== END 2023-11-11 16:00 | DRG 871 ==
LOC: EMS 12:43 → EDH 15:40 → 5S 21:04
PROVIDERS: ADMIT Internal Medicine; ATTEND Internal Medicine
DX: A41.89 Other specified sepsis (principal); E43 Unspecified severe protein-calorie malnutrition; J69.0 Pneumonitis due to inhalation of food and vomit; J96.00 Acute respiratory failure, unspecified whether with hypoxia or hypercapnia; U07.1 COVID-19; E87.0 Hyperosmolality and hypernatremia; N17.9 Acute kidney failure, unspecified; G93.49 Other encephalopathy; I48.92 Unspecified atrial flutter; N18.32 Chronic kidney disease, stage 3b; Z68.1 Body mass index [BMI] 19.9 or less, adult; D63.1 Anemia in chronic kidney disease; E11.22 Type 2 diabetes mellitus with diabetic chronic kidney disease; I48.91 Unspecified atrial fibrillation; E87.6 Hypokalemia; L89.159 Pressure ulcer of sacral region, unspecified stage; E11.65 Type 2 diabetes mellitus with hyperglycemia; N40.0 Benign prostatic hyperplasia without lower urinary tract symptoms; E78.00 Pure hypercholesterolemia, unspecified; I12.9 Hypertensive chronic kidney disease with stage 1 through stage 4 chronic kidney disease, or unspecified chronic kidney disease; L89.626 Pressure-induced deep tissue damage of left heel; X58.XXXA Exposure to other specified factors, initial encounter; F03.90 Unspecified dementia, unspecified severity, without behavioral disturbance, psychotic disturbance, mood disturbance, and anxiety; R62.7 Adult failure to thrive; S31.000A Unspecified open wound of lower back and pelvis without penetration into retroperitoneum, initial encounter; Z79.4 Long term (current) use of insulin; Z79.84 Long term (current) use of oral hypoglycemic drugs; Z79.82 Long term (current) use of aspirin; I69.398 Other sequelae of cerebral infarction; Z79.899 Other long term (current) drug therapy; Y93.9 Activity, unspecified; Y92.89 Other specified places as the place of occurrence of the external cause; Y99.8 Other external cause status
CPT/HCPCS: 36600; 71045; 74018; 76770; 80048; 80053; 80202; 81001; 82550; 82570; 82805; 82962; 83036; 83540; 83550; 83605; 83880; 84145; 84156; 84300; 84484; 84540; 85025; 85610; 85730; 87040; 87081; 87804; 93005; 99285; C9113; J0131; J0282; J1160; J1644; J2270; J2543; J7030; J7050; J7060; Q9967; 36415-L1; 36415-TC